=== PATIENT | male | born 1945 | race Caucasian/White ===

== ENCOUNTER 2019-05-04 16:12 | Emergency (ER) | payer MEDICARE, OTHER ==
--- NOTE | 2019-05-04 17:27 | Emergency Department Record ---
History of Present Illness - General Chief Complaint: Dizziness Stated Complaint: DIZZY Time Seen by Provider: 05/04/19 17:12 Source: Patient Mode of Arrival: Ambulatory Limitations: No limitations - History of Present Illness Initial Comments: The patient got up from lying on his lazyboy chair at 1:30 pm this afternoon and suddenly was "dizzy". He describes the feeling as feeling off balance and unsteady on his feet. The symptoms lasted about 2 hours then resolved. The patient denied any arm or leg numbness, weakness, trouble swallowing or speaking, Cp, SOB, PHIPPS, nausea or visual changes. The patient does have a hx of diabetes and and HTN and he does not have hx of Vertigo. Because this is new for him he decided to come to the ER for evaluation. MD Complaint: Dizziness, Difficulty walking Onset/Timin -: Hour(s) Timing: Unsure Description: Difficulty walking History of Same: No History of Trauma: No Severity: Mild Improves With: Nothing Worsens With: Nothing Associated Symptoms: Denies other symptoms - Related Data Allergies Allergy/AdvReac Type Severity Reaction Status Date / Time No Known Allergies Allergy Unverified 05/04/19 15:23 Travel Screening - Travel/Exposure Within Last 30 Days Have you traveled within the last 30 days?: No Review of Systems Constitutional: Denies: Chills, Fever Eyes: Denies: Eye discharge ENT: Denies: Congestion Respiratory: Denies: Cough, Dyspnea Cardiovascular: Denies: Chest pain Endocrine: Denies: Fatigue Gastrointestinal: Denies: Abdominal pain Genitourinary: Denies: Dysuria Musculoskeletal: Denies: Arthralgia Skin: Denies: Bruising Neurological: Reports: Abnormal gait. Denies: Confusion Past Medical History - SOCIAL HISTORY Smoking Status: Never smoker - RESPIRATORY Hx Respiratory Disorders: No - CARDIOVASCULAR Hx Cardio Disorders: Yes Hx Abnormal EKG: Yes Hx Heart Attack: Yes - NEURO Hx Neuro Disorders: Yes Hx Neuropathy: Yes - GI Hx GI Disorders: No - Hx Genitourinary Disorders: No - ENDOCRINE Hx Endocrine Disorders: Yes Hx Diabetes: Yes (type 2) - MUSCULOSKELETAL Hx Musculoskeletal Disorders: No - PSYCH Hx Psych Problems: No - HEMATOLOGY/ONCOLOGY Hx Hematology/Oncology Disorders: No Family Medical History Any Significant Family History?: No Physical Exam - General General Appearance: Alert, Oriented x3, Cooperative, No acute distress - Head Head exam: Atraumatic, Normocephalic, Normal inspection - Eye Eye exam: Normal appearance, PERRL - ENT ENT exam: Normal exam, Mucous membranes moist, Normal external ear exam, Normal orophraynx, TM's normal bilaterally Throat exam: Normal inspection. negative: Tonsillar erythema, Tonsillar exudate - Neck Neck exam: Normal inspection, Full ROM. negative: Tenderness - Respiratory Respiratory exam: Normal lung sounds bilaterally. negative: Respiratory distress - Cardiovascular Cardiovascular Exam: Regular rate, Normal rhythm, Normal heart sounds - GI/Abdominal GI/Abdominal exam: Soft, Normal bowel sounds. negative: Tenderness - Extremities Extremities exam: Normal inspection, Full ROM, Normal capillary refill. negative: Tenderness - Neurological Neurological exam: Alert, CN II-XII intact, Normal gait, Oriented X3, Other (Neg Drift and Rhomberg.). negative: Abnormal gait, Altered, Motor sensory deficit - Skin Skin exam: negative: Rash Course Vital Signs 05/04/19 17:01 Temperature 97.6 F Pulse Rate 60 Respiratory 16 Rate Blood Pressure 140/98 Pulse Ox 96 - Reevaluation(s) Reevaluation #1: The patient is doing very well at this time and is back to normal. I did discuss the lab tests and head CT results with the patient and the fact I feel he is at high risk for having a CVA. Due to that fact I did recommend transfer to a larger hospital for a CVA evaluation and the patient chose [facility]. We will initiate contact with them for transfer. 05/04/19 18:11 Reevaluation #2: The patient is doing very well at this time. He is neurologically intact and w ithout any ataxia or focal Neuro symptoms. I did discuss the case with Dr. Cormier at [facility] and she does accept the patient in transfer. 05/04/19 18:18 Medical Decision Making - Data Complexity MDM Data: Labs Ordered and/or Reviewed, X-Ray Ordered and/or Reviewed, EKG Ordered and/or Reviewed - Lab Data Result diagrams: 05/04/19 17:35 05/04/19 17:35 - EKG Data -: EKG Interpreted by Ar EKG: No Acute Changes (Old Inf infarct. Neg for acute changes.) - Radiology Data Radiology results: Report reviewed (Head CT: neg for acute changes.) Disposition Disposition: Transfer Clinical Impression: TIA (transient ischemic attack) Disposition: Acute Care Hospital Transfer Transfer To: [facility] Reason For Transfer: Neurology Accepting Physician: Genia Time Discussed w/Accepting Physician: 18:19 Condition: (2) Stable Forms: Patient Portal Access Time of Disposition: 18:19 Quality - Quality Measures Quality Measures: N/A - Blood Pressure Screening View Details: Yes Does Patient Have Any of the Following: Active Dx of HTN Blood Pressure Classification: Hypertensive Reading Systolic Measurement: 140 Diastolic Measurement: 98 Screening for High Blood Pressure: Patient Exclusion, Hx of HTN [[id number]]
[2019-05-04 17:43] LABS: BASO % 0.4 % (0-6); EOS % 3.1 % (0-6); GRAN % 43.8 % (47-80); HEMATOCRIT 45.4 % (42.0-52.0); HEMOGLOBIN 15.5 gm/dl (14.0-18.0); LYMPH % 39.4 % (16-45); MEAN CELL VOLUME 94.6 fl (81-97); MEAN CORPUSCULAR HEMOGLOBIN 32.3 pg (27-33); MEAN CORPUSCULAR HGB CONC 34.1 g/dl (32-36); MONO % 13.3 % (0-9); PLATELET COUNT 206 K/uL (130-400); RED CELL DISTRIBUTION WIDTH 13.1 % (11.5-14.5); WHITE BLOOD COUNT W/O DIFF 10.3 K/uL (4.2-12.2)
[2019-05-04 17:53] LABS: CREATININE 1.3 mg/dL (0.7-1.2)
[2019-05-04 17:54] LABS: TOTAL PROTEIN 7.3 g/dL (6.6-8.7)
[2019-05-04 17:59] LABS: ALB/GLOB RATIO 1.7 (1.1-1.8); ALBUMIN 4.6 g/dL (4.0-5.0)
[2019-05-04 18:03] LABS: BILIRUBIN,TOTAL 0.4 mg/dL (0.2-1.0)
[2019-05-04] MEDS ORDERED: ASPIRIN 325 MG TABLET PO ONE (18:07)
--- NOTE | 2019-05-05 22:19 | CT SCAN REPORT ---
EXAM: CT SCAN HEAD WO CONTRAST HISTORY: DIZZINESS. TECHNIQUE: Helical CT scan of the head obtained without IV contrast. COMPARISON: None. FINDINGS: No evidence of hemorrhage, extraaxial fluid collection, or major vessel infarction. Rothman-white matter differentiation is maintained. Ventricles are normal. Basal cisterns are patent. No mass effect or midline shift. Calvarium is intact. Paranasal sinuses and middle ear cavities are well aerated. IMPRESSION: NO ACUTE INTRACRANIAL ABNORMALITIES. JOB NUMBER: [id number] MTDD
== END 2019-05-04 18:43 | disposition short-term general hospital (02) ==
LOC: ER 16:12
DX: G45.9 Transient cerebral ischemic attack, unspecified (principal); R42 Dizziness and giddiness; R26.2 Difficulty in walking, not elsewhere classified; I10 Essential (primary) hypertension; E11.9 Type 2 diabetes mellitus without complications; I25.2 Old myocardial infarction
CPT/HCPCS: 70450; 80053; 85025; 93005; 93010; 99285